=== PATIENT | male | born 1940 | race Caucasian/White ===

== ENCOUNTER → 2017-02-14 | Outpatient (CLI) | payer MEDICARE ==
[~2017-02-14] MED LIST: AMLO10TA2 PO; ASPI81TA81; LATA0.002 EACH EYE; LOVA10TA PO; MULTTAB67 PO; PRIM50TA5 PO
== END ==
LOC: CPRE 10:05
PROVIDERS: ATTEND Neurological Surgery
DX: M48.062 Spinal stenosis, lumbar region with neurogenic claudication (principal)

== ENCOUNTER 2017-02-18 06:05 | Inpatient (IN) | payer MEDICARE ==
[~2017-02-18] VITALS: Ht 177.8 cm; Wt 96.7 kg
[~2017-02-18 06:05] MED LIST changes: -ASPI81TA81
[2017-02-18] MEDS: LACTATED RINGER'S 1000 ML IV PRN ×2 (06:45→07:00)
[2017-02-18] MEDS ORDERED: CHLORHEXIDINE GLUCONATE 2 % 1 PACK (2 CLOTHS) TOPICAL PRN (06:45)
[2017-02-18] MEDS ORDERED: POVIDONE IODINE 5% (ANTISEPSIS KIT) 4 APPLICATIONS EACH NARE PRN (06:45)
[2017-02-18] MEDS ORDERED: SODIUM CHLORID 0.9% 500 ML IV PRN (06:45)
[2017-02-18] MEDS ORDERED: METOPROLOL TARTRATE 25 MG TAB PO PRN (06:45)
[2017-02-18] MEDS ORDERED: THROMBIN (TOPICAL) 5,000 UNIT VIAL ONE (07:21)
[2017-02-18] MEDS ORDERED: LIDOCAINE 1%/EPINEPHrine 1:100,000 SOLN 50 ML VIAL ONE (07:21)
[2017-02-18] MEDS ORDERED: GENTAMICIN SULFATE 80 MG/2 ML VIAL ONE (07:21)
[2017-02-18] MEDS ORDERED: GELFOAM SIZE 100 ONE (07:21)
[2017-02-18] MEDS ORDERED: BUPIVACAINE/EPINEPHRINE 0.25% PF 30 ML VIAL ONE (07:31)
[2017-02-18] MEDS: ceFAZolin 1,000 MG/NS 100 ML IV SCH ×4 (07:35→09:14)
[2017-02-18] MEDS ORDERED: PROPOFOL 500 MG/50 ML INJ 0 ML ONE (07:41)
[2017-02-18] MEDS ORDERED: ACETAMINOPHEN 1000 MG/100 ML 100 ML IV ONE (07:59)
[2017-02-18] MEDS ORDERED: ARTIFICIAL TEARS OPTH OINT 3.5 APPLIC/3.5 GM TUBO ONE (07:59)
[2017-02-18] MEDS ORDERED: PROPOFOL 500 MG/50 ML INJ 200 ML ONE (07:59)
[2017-02-18] MEDS ORDERED: HEPARIN SODIUM - SQ 10,000 UNITS/ML VIAL ONE (08:03)
[2017-02-18] MEDS ORDERED: DEXAMETHASONE SOD PHOS 4 MG/ML VIAL ONE (09:39)
[2017-02-18] MEDS ORDERED: NALOXONE HCL 0.4 MG/ML AMP IV PUSH PRN ×2 (10:30)
[2017-02-18] MEDS ORDERED: HYDROmorphone HCL PF 1 MG/ML VIAL IV PUSH PRN (10:30)
[2017-02-18] MEDS ORDERED: ONDANSETRON HCL 4 MG/2 ML VIAL IV PUSH PRN (10:30)
[2017-02-18] MEDS ORDERED: ceFAZolin 2 GM PREMIX 50 ML ONE ×2 (11:15→15:37)
[2017-02-18 14:05] LABS: BLOOD GAS BASE EXCESS -0.6 mmol/L (-2-2); BLOOD GAS CARBOXYHEMOGLOBIN 1.2 % (0-4); BLOOD GAS HCO3 23 mmol/L (22-26); BLOOD GAS O2 HGB SATURATION 97 % (90-100); BLOOD GAS OXYGEN CONTENT 18.9 Vol % (12.0-20.0); BLOOD GAS PCO2 34 mmHg (38-42); BLOOD GAS PO2 190 mmHg (61-120); BLOOD GAS TOTAL HGB 13.6 G/DL (12.0-16.0); CRITICAL VALUE NO; OXYGEN DEVICE OR; TEMP CORR TO 98.6; VENT SETTINGS OR
[2017-02-18 14:06] LABS: DRAW SITE ART LINE; STAT YES
[2017-02-18] MEDS ORDERED: FUROSEMIDE 40 MG/4 ML VIAL ONE (15:22)
[2017-02-18 15:42] LABS: BLOOD GAS BASE EXCESS -2.6 mmol/L (-2-2); BLOOD GAS CARBOXYHEMOGLOBIN 1.3 % (0-4); BLOOD GAS HCO3 21 mmol/L (22-26); BLOOD GAS METHEMOGLOBIN 1.2 % (0-2); BLOOD GAS O2 HGB SATURATION 97 % (90-100); BLOOD GAS OXYGEN CONTENT 17.8 Vol % (12.0-20.0); BLOOD GAS PCO2 33 mmHg (38-42); BLOOD GAS PO2 183 mmHg (61-120); BLOOD GAS TOTAL HGB 12.8 G/DL (12.0-16.0); TEMP CORR TO 98.6
[2017-02-18 15:43] LABS: CRITICAL VALUE NO
[2017-02-18 15:43] LABS: BASOPHIL % 0.1 % (0.0-2.0); EOSINOPHIL % 0.1 % (0.0-4.0); HEMATOCRIT 40.1 % (39.0-51.0); HEMO FLAGS DIFF FINAL; LYMPHOCYTE # 0.4 TH/MM3 (1.0-4.8); MEAN CELL VOLUME 98.2 FL (80.0-100.0); MEAN CORPUSCULAR HGB CONC 33.6 % (32.0-36.0); MONO % 6.1 % (0.0-8.0); NEUT % 91.7 % (16.0-70.0); PLATELET COUNT 180 TH/MM3 (150-450); RED BLOOD COUNT 4.08 MIL/MM3 (4.50-5.90); RED CELL DISTRIBUTION WIDTH 12.9 % (11.6-17.2); WHITE BLOOD COUNT 21.8 TH/MM3 (4.0-11.0)
[2017-02-18 15:47] LABS: FIO2 53 %; OXYGEN DEVICE VENTILATOR
[2017-02-18 15:48] LABS: DRAW SITE ART LINE
[2017-02-18 15:49] LABS: STAT YES
[2017-02-18] MEDS ORDERED: SUGAMMADEX SODIUM 200 MG/2 ML VIAL IV PUSH ONE ×2 (16:30)
--- NOTE | 2017-02-18 17:00 | PD.OP ---
cc: Alfredo Olivo MD Operative Report Date of Surgery: Feb 18, 2017 Preoperative Diagnosis: (1) Flat back syndrome, acquired (2) Back pain 1. Severe lumbar degenerative disc disease 2. Lumbar spine deformity-flat back syndrome 3. Severe chronic low back pain Postoperative Diagnosis: (1) Flat back syndrome, acquired (2) Back pain 1. Severe lumbar degenerative disc disease 2. Lumbar spine deformity-flat back syndrome 3. Severe chronic low back pain Procedure: Part 1 of planned two-part procedure. 1. Anterior retroperitoneal approach to the lumbar spine-Dr. Olivo 2. L4 5 and L5-S1 anterior lumbar discectomy 3. L4 5 and L5-S1 anterior interbody fusion with titanium lordotic cage, autograft bone and DBM. Anesthesia: Gen. endotracheal Surgeon: Yaniv Olivo M.D. Low Pressure Kettle Operator(s): Naty Melendez Operation and Findings: Findings: Large anterior osteophytes at the L4 5 and L5-S1 level. Significant vascular adhesions. The patient was brought into the operating room and general endotracheal anesthesia induced without difficulty Benjamin catheter KARLOS hose and sequential compression devices were placed Lines were established per Anesthesia The leads for intraoperative neuro monitoring were placed and a baseline study obtained The patient was placed in supine position on the concentric Jeremy table and extremities were properly padded. A lumbar lordotic roll was placed across the lower lumbar region with pneumatic pressure cuffs placed to provide additional lordotic curvature during the procedure as needed. The anterior abdominal region was shaved with clippers sterilely prepped and draped Appropriate timeout procedure was performed with all personnel present and in agreement The initial exposure was performed per Dr. Alfredo Olivo and will be dictated separately. The undersigned entered the room with initial excellent exposure of the L4-5 anterior vertebral bodies and annulus. The level was verified with intraoperative C-arm. The 15 blade knife was used to incise the anterior annulus at the L4 5 level. The discectomy was performed with the long discectomy forceps and straight and angled curettes. A thorough discectomy was performed out to the lateral and posterior annulus on each side. The endplate scrapers were used to decorticate the endplate The bone rongeur was used to remove large anterior osteophytes The blunt distractors with the distraction paddle was used to elevate the anterior L4 5 interspace into a lordotic curvature The appropriate size titanium lordotic cage was packed with demineralized bone, cancellus chips, and stem cell matrix and a small amount of autograft from the osteophyte removal. The 20 18 mm cage was used at the L4 5 level. The appropriate size anterior cervical plate was then chosen with the 27 mm plate at the L4 [address] with 5.035 mm variable angle screws The locking mechanism was secured over the screws at each level The entire construct was checked with intraoperative C-arm and felt to be satisfactory The exposure at the L5-S1 level and placement of the retractor blades was then performed per Dr. Olivo. The similar procedure was performed at the L5-S1 level for the undersigned. The anterior disc and annulus were incised and discectomy performed with the long discectomy forceps and straight and angled curettes. The endplate scrapers were used to decorticate the endplate taking care not to disrupt the integrity of the endplates The distraction paddle was then used to distract the anterior L5-S1 vertebral bodies into a lordotic curvature. The trials were utilized and the 20 14 mm titanium cage was chosen. The cage was packed with demineralized bone matrix with stem cell matrix, cancellous chips and a small amount of autologous local bone. The cage was placed with a good fit at the L5-S1 level. The 27 mm anterior plate was chosen and secured with the 5.0 x 30 mm variable screws which were then secured with the locking cam. The entire construct was again checked with intraoperative C-arm and felt to be satisfactory. There appeared to be a satisfactory increase in the lordotic curvature at the end of the procedure. The regions were well irrigated with antibiotic irrigation prior to closure. The closure was performed by Dr. Olivo and will be dictated separately. The patient was taken to recovery room in stable condition Estimated blood loss was 850 cc with 524 cc given back in the Cell Saver. All counts were correct at the end of the case No specimen was sent to pathology Intraoperative neuro monitoring was stable during the procedure It was elected to stage the posterior pedicle screw fixation portion of the procedure due to the increased anesthesia time for the initial portion of procedure secondary to extensive inflammation and adhesions resulting in difficulty with exposure for the first stage, Yaniv Aquino MD Feb 18, 2017 17:00
[2017-02-18] MEDS ORDERED: *RESP: ALBUTEROL 2.5 MG/3 ML NEB (PRN) PERIprocedural Use ONLY NEB ONE (17:26)
--- NOTE | 2017-02-18 17:27 | RADRPT ---
EXAM DATE/TIME: 02/18/2017 16:35 [facility] COMPARISON: No previous studies available for comparison. INDICATIONS : Instrument count. MEDICAL HISTORY : None. SURGICAL HISTORY : Anterior lumbar fusion. ENCOUNTER: Initial ACUITY: 1 day PAIN SCORE: Non-responsive. LOCATION: Abdomen. FINDINGS: Status post anterior lumbar fusion with cages in good position. There are no retained surgical instr uments Hardware and multiple surgical clips are noted. CONCLUSION: Negative for retained surgical enhancements. Adolfo Rodríguez MD FACR on February 18, 2017 at 17:24 Board Certified Radiologist. This report was verified electronically.
--- NOTE | 2017-02-18 17:29 | RADRPT ---
EXAM DATE/TIME: 02/18/2017 09:47 [facility] COMPARISON: No previous studies available for comparison. INDICATIONS : Anterior lumbar fusion L4/L5/S1. MEDICAL HISTORY : None. SURGICAL HISTORY : None. ENCOUNTER: Initial ACUITY: 1 day PAIN SCORE: Non-responsive. LOCATION: Lumbar spine. FINDINGS: Status post anterior lumbar fusion L4-5 and L5-S1. Alignment is anatomic. CONCLUSION: Anatomic alignment. Adolfo Rodríguez MD FACR on February 18, 2017 at 17:27 Board Certified Radiologist. This report was verified electronically.
--- NOTE | 2017-02-18 17:31 | MP ---
cc: TARIQ SANTIAGO M.D., WILLIAM B. M.D. DATE OF SURGERY: 02/18/2017. PREOPERATIVE DIAGNOSIS: Severe degenerative disease of the lumbosacral spine. POSTOPERATIVE DIAGNOSIS: Severe degenerative disease of the lumbosacral spine. PROCEDURE Anterior retroperitoneal exposure of L4-5, L5-S1. SURGEON: Tariq Santiago M.D. NEUROSURGEON: Yaniv Aquino MD. ANESTHESIA: General. INDICATIONS FOR THE PROCEDURE: This is a 76-year-old gentleman who is a patient of Dr. Yaniv Aquino who has had chronic back pain. He has undergone extensive evaluation and recommendations have been made for anterior interbody fusion. Request was made for anterior retroperitoneal exposure. INTRAOPERATIVE FINDINGS: Pretty significant osteophytes and subsequent inflammatory changes causing increased difficulty in providing exposure. The procedure took additional time due to these chronic inflammatory changes and ultimately excellent exposure of L4-5 and L5-S1 was obtained for the procedures as dictated by Dr. Aquino. ESTIMATED BLOOD LOSS: 850 with Cell Saver blood 550 returned to the patient. DESCRIPTION OF THE PROCEDURE IN DETAIL: The patient was identified as Aly Wheeler and taken to the operating room and placed in the supine position. Following induction of adequate general endotracheal anesthesia, placement of sequential compression devices and a Benjamin catheter, the patient's abdomen was prepped and draped in the usual sterile fashion with Betadine. A time-out procedure was performed. Following completion of the time-out procedure to everyone's satisfaction within the room, a slightly obliquely oriented incision just inferior and left lateral to the umbilicus down to above the pubic symphysis was carried out with a scalpel and hemostasis controlled with electrocautery. Dissection continued posteriorly through subcutaneous fatty tissue layer into the anterior rectus fascia slightly to the left of midline was identified and incised vertically. The underlying rectus muscle was swept laterally and anteriorly, thus exposing a preperitoneal and then retroperitoneal plane using electrocautery and blunt dissection the left iliopsoas muscle and then left iliac artery and vein were identified. The posterior fascia was released from the peritoneum laterally and the posterior fascia incised superiorly to allow for further exposure of the L5-S1 interspace. The Omni retractor was brought onto the surgical field and sequential retraction was performed. Attempts first to identify the L5-S1 interspace were done and the middle sacral vessels were identified and divided between 2-0 silk ties and hemoclips. The severe inflammatory nature of the fatty tissue directly on top of osteophytic change made the dissection more difficult. The tissue was very friable and oozed a fair amount. Hemostasis was controlled with combination of suture ligature hemoclips and electrocautery. Attention was then turned to mobilization of left iliac artery and vein proximally and distally. Three separate ascending lumbar vessels were divided to allow for mobilization of the inferior vena cava and the left iliac vein. These were divided between the suture ligature with 5-0 Prolene, 2-0 silk ties and hemoclips. This then allowed for movement of the Omni retractor blades in order to identify the L4-L5 interspace. Intraoperative C-arm fluoroscopic images were used to guide and assure that the appropriate level was being attended to. Completion of exposure of L4-L5 was performed. Retractor blades were appropriately positioned and Dr. Aquino entered the operating room to perform his portion of the procedure at this level. Please refer to his dictation. Following completion of the diskectomy and anterior interbody fusion by Dr. Aquino, the retracting blades were then moved to the L5-S1 interspace. Further dissection was required and the left iliac vein was infused basically to the superolateral L5-S1 interspace. Dissecting down into the tissue on top of the interspace allowed for further mobilization of left iliac vein without injuring it. Repositioning of the retracting blades allowed for excellent visualization of the L5-S1 interspace. This was confirmed on C-arm fluoroscopic images. Dr. Aquino then reentered the operating room and performed his portion of procedure at the appropriate level. Please refer to his dictation. Following completion of the second anterior diskectomy and interbody fusion with placement of the anterior plates, I returned to the operating room to sequentially remove the Omni retractor blades. A small amount of bleeding was controlled with cautery. The left ureter and the peritoneum was allowed to return to its normal anatomic position uninjured. The left spermatic cord remained uninjured and intact. The anterior rectus fascial incision was closed with running #1 single stranded PDS suture. Irrigation ensued. The subcutaneous space was then closed with multiple interrupted inverted 2-0 Vicryl sutures. Skin was approximated with 4-0 Monocryl subcuticular sutures and dressings applied with Mastisol and half inch brown Steri-Strips and Optifoam dressing. The patient tolerated the procedure without apparent complication. Sponge, needle and instrument counts correct at the end of the case. MD LUIS Peña/SOHAN /4:42 PM /4:58 PM
[2017-02-18] MEDS ORDERED: *morphine SULFATE 8 MG/ML PERIprocedure ONLY ONE ×2 (17:47→18:06)
[2017-02-18] MEDS ORDERED: DO NOT ADM ANY ANTICOAGULANT DRUGS PRN (18:00)
[2017-02-18 18:28] VITALS: BP 138/67; PULSE 85; RESP 17; TEMP 97.5; O2SAT 98
[2017-02-18 18:33] VITALS: BP 141/71; PULSE 86; RESP 18; O2SAT 98
[2017-02-18] MEDS: D5-1/2 NS + KCL 20 MEQ INJ 1,000 ML IV SCH (18:35)
[2017-02-18 20:00] VITALS: BP 153/87; PULSE 88; RESP 14; TEMP 98.2; O2SAT 99
[2017-02-18] MEDS: DOCUSATE SODIUM 100 MG CAP PO SCH (20:03)
[2017-02-18] MEDS: ACETAMINOPHEN/HYDROcodone 325 MG/5 MG TAB PO PRN (20:03)
[2017-02-18] MEDS: MORPHINE SULFATE 4 MG/ML INJ IV PUSH PRN (20:05)
[2017-02-18 20:30] LABS: BICARBONATE 24.2 MEQ/L (21.0-32.0); POTASSIUM 4.2 MEQ/L (3.5-5.1)
[2017-02-18] MEDS: LATANOPROST 0.005% OPHT SOLN 2.5 ML BTL EACH EYE SCH (20:44)
[2017-02-18] MEDS: PRIMIDONE 50 MG TAB PO SCH (20:44)
[2017-02-18 22:00] VITALS: PULSE 86
[2017-02-19] VITALS (11 sets, daily range): BP systolic 122–151; BP diastolic 63–85; PULSE 74–89; RESP 10–18; TEMP 97.6–100.8; O2SAT 92–99
[2017-02-19] MEDS: D5-1/2 NS + KCL 20 MEQ INJ 1,000 ML IV SCH ×2 (02:08→08:02)
[2017-02-19 03:06] LABS: BASOPHIL % 0.2 % (0.0-2.0); EOSINOPHIL % 0.1 % (0.0-4.0); HEMATOCRIT 38.8 % (39.0-51.0); HEMO FLAGS DIFF FINAL; LYMPH % 4.6 % (9.0-44.0); LYMPHOCYTE # 0.6 TH/MM3 (1.0-4.8); MEAN CELL VOLUME 98.2 FL (80.0-100.0); MEAN CORPUSCULAR HEMOGLOBIN 33.7 PG (27.0-34.0); MEAN CORPUSCULAR HGB CONC 34.4 % (32.0-36.0); MONO % 13.1 % (0.0-8.0); PLATELET COUNT 133 TH/MM3 (150-450); RED BLOOD COUNT 3.95 MIL/MM3 (4.50-5.90); RED CELL DISTRIBUTION WIDTH 12.9 % (11.6-17.2); WHITE BLOOD COUNT 13.4 TH/MM3 (4.0-11.0)
[2017-02-19 03:22] LABS: APTT (PATIENT) 24.3 SEC (24.3-30.1); INTERNATIONAL NORMALIZED RATIO 1.1 RATIO; PROTHROMBIN TIME - PATIENT 10.7 SEC (9.8-11.6)
[2017-02-19 04:00] LABS: BICARBONATE 29.5 MEQ/L (21.0-32.0); POTASSIUM 4.1 MEQ/L (3.5-5.1)
[2017-02-19] MEDS: ACETAMINOPHEN/HYDROcodone 325 MG/5 MG TAB PO PRN ×4 (05:28→21:51)
[2017-02-19] MEDS: PANTOPRAZOLE SODIUM 40 MG VIAL IVP SCH (08:00)
[2017-02-19] MEDS: DOCUSATE SODIUM 100 MG CAP PO SCH ×2 (08:01→21:50)
[2017-02-19] MEDS: NICOTINE 14 MG/24 HR PATCH T-DERMAL SCH (08:01)
[2017-02-19] MEDS: MULTIVITAMIN TAB PO SCH (08:01)
[2017-02-19] MEDS: REMOVE OLD PATCH T-DERMAL SCH ×2 (08:02→21:50)
[2017-02-19] MEDS: PRIMIDONE 50 MG TAB PO SCH ×2 (08:03→21:50)
[2017-02-19] MEDS: MORPHINE SULFATE 4 MG/ML INJ IV PUSH PRN (08:07)
--- NOTE | 2017-02-19 09:43 | HHI.PR ---
Subjective Subjective Notes Doing well, appropriately sore postop. Tolerated clears, no nausea. Walked straight upright, family very impressed. Wants food and transfer to floor. Objective Vitals/I&O Vital Signs Date Time Temp Pulse Resp B/P (MAP) Pulse Ox O2 Delivery O2 Flow Rate FiO2 02/19/17 07:31 95 Nasal Cannula 3.00 02/19/17 06:00 78 02/19/17 04:00 98.6 10 139/69 (92) Labs Laboratory Tests Test 02/18/17 13:55 02/18/17 15:30 02/18/17 15:35 02/18/17 19:56 Blood Gas Puncture Site ART LINE ART LINE Blood Gas Patient Temperature 98.6 98.6 Blood Gas HCO3 23 21 Blood Gas Base Excess -0.6 -2.6 Blood Gas Oxygen Saturation 97 97 Arterial Blood pH 7.44 7.43 Arterial Blood Partial Pressure CO2 34 33 Arterial Blood Partial Pressure O2 190 183 Arterial Blood Oxygen Content 18.9 17.8 Arterial Blood Carboxyhemoglobin 1.2 1.3 Arterial Blood Methemoglobin 1.0 1.2 Blood Gas Hemoglobin 13.6 12.8 Oxygen Delivery Device OR VENTILATOR Blood Gas Ventilator Setting OR White Blood Count 21.8 Red Blood Count 4.08 Hemoglobin 13.5 Hematocrit 40.1 Mean Corpuscular Volume 98.2 Mean Corpuscular Hemoglobin 33.0 Mean Corpuscular Hemoglobin Concent 33.6 Red Cell Distribution Width 12.9 Platelet Count 180 Mean Platelet Volume 8.6 Neutrophils (%) (Auto) 91.7 Lymphocytes (%) (Auto) 2.0 Monocytes (%) (Auto) 6.1 Eosinophils (%) (Auto) 0.1 Basophils (%) (Auto) 0.1 Neutrophils # (Auto) 20.0 Lymphocytes # (Auto) 0.4 Monocytes # (Auto) 1.3 Eosinophils # (Auto) 0.0 Basophils # (Auto) 0.0 CBC Comment DIFF FINAL Differential Comment Blood Gas Inspired Oxygen 53 Blood Urea Nitrogen 10 Creatinine 1.42 Random Glucose 249 Calcium Level 7.8 Sodium Level 138 Potassium Level 4.2 Chloride Level 103 Carbon Dioxide Level 24.2 Anion Gap 11 Estimat Glomerular Filtration Rate 49 Test 02/19/17 02:54 White Blood Count 13.4 Red Blood Count 3.95 Hemoglobin 13.3 Hematocrit 38.8 Mean Corpuscular Volume 98.2 Mean Corpuscular Hemoglobin 33.7 Mean Corpuscular Hemoglobin Concent 34.4 Red Cell Distribution Width 12.9 Platelet Count 133 Mean Platelet Volume 8.5 Neutrophils (%) (Auto) 82.0 Lymphocytes (%) (Auto) 4.6 Monocytes (%) (Auto) 13.1 Eosinophils (%) (Auto) 0.1 Basophils (%) (Auto) 0.2 Neutrophils # (Auto) 11.0 Lymphocytes # (Auto) 0.6 Monocytes # (Auto) 1.8 Eosinophils # (Auto) 0.0 Basophils # (Auto) 0.0 CBC Comment DIFF FINAL Differential Comment Prothrombin Time 10.7 Prothromb Time International Ratio 1.1 Activated Partial Thromboplast Time 24.3 Blood Urea Nitrogen 8 Creatinine 0.90 Random Glucose 189 Calcium Level 7.6 Sodium Level 139 Potassium Level 4.1 Chloride Level 105 Carbon Dioxide Level 29.5 Anion Gap 5 Estimat Glomerular Filtration Rate 82 Abdomen: Non-distended, Non-tender, Other (dressing dry and intact, no erythema or drainage. Bowel sounds normal.) Extremities: No edema, Perfused A/P Assessment and Plan POD 1 anterior retroperitoneal exposure L4L5, L5S1, anterior microdiskectomy, AIBF. Doing well. Regular diet. OK for transfer to regular floor when OK with Dr Aquino. Alfredo Olivo MD Feb 19, 2017 09:43
--- NOTE | 2017-02-19 10:01 | HHI.NSPN ---
(Sandie Lo) Note Status Status: Progress Note (Sandie Lo) Interval History Interval History Mr. Wheeler is a 76 year old male s/p L4-5, L5-S1 anterior discectomy with interbody fusion with titanium lordotic cage, autograft bone and DBM on Feb 18, 2017. 02/19: patient doing well, c/o soreness in the belly. sat up in chair this am. (Sandie Lo) Labs, Micro, & Vital Signs Results Date Time Temp Pulse Resp B/P (MAP) Pulse Ox O2 Delivery O2 Flow Rate FiO2 02/19/17 08:00 97.6 74 16 123/70 (87) 97 02/19/17 07:31 95 Nasal Cannula 3.00 02/19/17 07:00 96 Nasal Cannula 2.00 02/19/17 06:00 78 02/19/17 04:00 80 02/19/17 04:00 98.6 80 10 139/69 (92) 97 02/19/17 03:02 98 Nasal Cannula 3.00 02/19/17 02:00 80 02/19/17 00:00 98.4 89 13 144/85 (104) 99 02/19/17 00:00 89 02/18/17 22:00 86 02/18/17 20:00 98.2 88 14 153/87 (109) 99 02/18/17 20:00 88 02/18/17 19:00 99 Nasal Cannula 4.00 02/18/17 18:33 86 18 141/71 (94) 98 02/18/17 18:32 97 Nasal Cannula 4.00 02/18/17 18:28 97.5 85 17 138/67 (90) 98 02/18/17 18:00 98.5 85 15 128/65 (86) 96 Nasal Cannula 3 02/18/17 17:45 84 15 125/64 (84) 96 Nasal Cannula 4 02/18/17 17:30 83 16 122/64 (83) 97 Nasal Cannula 4 02/18/17 17:11 98.0 83 16 135/61 (85) 96 Nasal Cannula 6 Constitutional Vital Signs Date Time Temp Pulse Resp B/P (MAP) Pulse Ox O2 Delivery O2 Flow Rate FiO2 02/19/17 08:00 97.6 74 16 123/70 (87) 97 02/19/17 07:31 95 Nasal Cannula 3.00 02/19/17 07:00 96 Nasal Cannula 2.00 02/19/17 06:00 78 02/19/17 04:00 80 02/19/17 04:00 98.6 80 10 139/69 (92) 97 02/19/17 03:02 98 Nasal Cannula 3.00 02/19/17 02:00 80 02/19/17 00:00 98.4 89 13 144/85 (104) 99 02/19/17 00:00 89 02/18/17 22:00 86 02/18/17 20:00 98.2 88 14 153/87 (109) 99 02/18/17 20:00 88 02/18/17 19:00 99 Nasal Cannula 4.00 02/18/17 18:33 86 18 141/71 (94) 98 02/18/17 18:32 97 Nasal Cannula 4.00 02/18/17 18:28 97.5 85 17 138/67 (90) 98 02/18/17 18:00 98.5 85 15 128/65 (86) 96 Nasal Cannula 3 02/18/17 17:45 84 15 125/64 (84) 96 Nasal Cannula 4 02/18/17 17:30 83 16 122/64 (83) 97 Nasal Cannula 4 02/18/17 17:11 98.0 83 16 135/61 (85) 96 Nasal Cannula 6 (Sandie Lo) Physical Exam Mr. Wheeler is alert, awake and oriented to time, place and person. Speech is fluent. Cranial nerve examination: pupils to be equal, round and reactive to light. Extra-ocular movements are intact. Facial motor are normal and symmetrical. Belly incision is clean and dry. Muscle strength is normal in lower extremities. bilateral plantar flexion response (Sandie Lo) Medications Current Medications Current Medications Medications (Trade) Dose Ordered Sig/Ethel Route PRN Reason Start Time Stop Time Status Last Admin Dose Admin Potassium Chloride/Dextrose/ Sod Cl 1,000 ml @ 100 mls/hr Q10H IV 02/18/17 11:00 02/19/17 08:02 Docusate Sodium (Colace) 100 mg BID PO 02/18/17 21:00 02/19/17 08:01 Pantoprazole Sodium (Protonix Inj) 40 mg DAILY IVP 02/19/17 09:00 02/19/17 08:00 Ondansetron HCl (Zofran Inj) 4 mg Q6H PRN IV PUSH NAUSEA OR VOMITING 02/18/17 10:30 Acetaminophen/ Hydrocodone Bitart ([place] 5-325 Mg) 1 tab Q4H PRN PO PAIN SCALE 3 TO 5 02/18/17 10:30 02/19/17 09:46 Hydromorphone HCl (Dilaudid Pf Inj) 0.5 mg Q3H PRN IV PUSH Pain 3-5; if unable to take PO 02/18/17 10:30 Morphine Sulfate (Morphine Inj) 4 mg Q3H PRN IV PUSH BREAKTHROUGH PAIN 02/18/17 10:30 02/19/17 08:07 Naloxone HCl (Narcan Inj) 0.4 mg UNSCH PRN IV PUSH SEE LABEL COMMENTS 02/18/17 10:30 Hydromorphone HCl (Dilaudid) 2 mg Q4H PRN PO PAIN SCALE 6 TO 10 02/18/17 10:30 Nicotine (Habitrol 14 Mg Patch.24 Hr) 1 patch DAILY T-DERMAL 02/19/17 09:00 02/19/17 08:01 Miscellaneous Information 1 DAILY T-DERMAL 02/19/17 09:00 02/19/17 08:02 Amlodipine Besylate (Norvasc) 10 mg HS PO 02/18/17 21:00 02/18/17 20:03 Latanoprost (Xalatan 0.005% Opt Soln) 1 drop HS EACH EYE 02/18/17 21:00 02/18/17 20:44 Primidone (Mysoline) 100 mg BID PO 02/18/17 21:00 02/19/17 08:03 Multivitamins (Theragran) 1 tab DAILY PO 02/19/17 09:00 02/19/17 08:01 Miscellaneous Information ALL NURSING DEPARTME... UNSCH PRN .XX SEE LABEL COMMENTS 02/18/17 18:00 02/19/17 17:59 (Sandie Lo) Medical Decision Making MDM Remarks 76 y/o male s/p L4-5, L5-S1 ALIF on 02/18/17, doing well post-operatively, neuro stable (Sandie Lo) Plan Plan Remarks clear to transfer to Dr. Olivo following cont pain control prn SCDs and TEDs for dvt prophylaxis physical therapy LSO when out of bed (Sandie Lo) Attending Statement The exam, history, and the medical decision-making described in the above note were completed with the assistance of the mid-level provider. I reviewed and agree with the findings presented. I attest that I had a [id number] encounter with the patient on the same day, and personally performed and documented my assessment and findings in the medical record. (David Jernigan MD) Sandie Lo Feb 19, 2017 10:01 David Jernigan MD Feb 20, 2017 16:58
[2017-02-19] MEDS: HYDROmorphone HCL 2 MG TAB PO PRN (18:04)
[2017-02-19] MEDS: LATANOPROST 0.005% OPHT SOLN 2.5 ML BTL EACH EYE SCH (21:50)
[2017-02-20] VITALS (7 sets, daily range): BP systolic 107–138; BP diastolic 56–76; PULSE 74–92; RESP 17–20; TEMP 98–100.5; O2SAT 91–95
[2017-02-20] MEDS: D5-1/2 NS + KCL 20 MEQ INJ 1,000 ML IV SCH ×3 (00:55→20:50)
[2017-02-20] MEDS: ACETAMINOPHEN/HYDROcodone 325 MG/5 MG TAB PO PRN ×2 (01:59→06:21)
[2017-02-20] MEDS: NICOTINE 14 MG/24 HR PATCH T-DERMAL SCH (09:45)
[2017-02-20] MEDS: MULTIVITAMIN TAB PO SCH (09:45)
[2017-02-20] MEDS: DOCUSATE SODIUM 100 MG CAP PO SCH ×2 (09:45→20:47)
[2017-02-20] MEDS: PRIMIDONE 50 MG TAB PO SCH ×2 (09:45→20:47)
[2017-02-20] MEDS: PANTOPRAZOLE SODIUM 40 MG VIAL IVP SCH (09:50)
--- NOTE | 2017-02-20 11:13 | HHI.NSPN ---
(Sandie Lo) Note Status Status: Progress Note (Sandie Lo) Interval History Interval History Mr. Wheeler is a 76 year old male s/p L4-5, L5-S1 anterior discectomy with interbody fusion with titanium lordotic cage, autograft bone and DBM on Feb 18, 2017. 02/19: patient doing well, c/o soreness in the belly. sat up in chair this am. 02/20: complains of constipation and muscle spasms, otherwise he is doing well. (Sandie Lo) Labs, Micro, & Vital Signs Results Date Time Temp Pulse Resp B/P (MAP) Pulse Ox O2 Delivery O2 Flow Rate FiO2 02/20/17 07:41 98.6 92 17 116/64 (81) 94 02/20/17 04:00 98.0 83 20 138/74 (95) 95 02/20/17 00:00 100.5 85 18 112/56 (74) 92 02/19/17 20:25 100.8 89 18 151/76 (101) 92 02/19/17 14:25 99.1 82 18 122/63 (82) 97 02/19/17 13:55 Nasal Cannula 2.00 02/19/17 12:00 84 02/19/17 12:00 98.0 76 16 123/70 (87) 97 Constitutional Vital Signs Date Time Temp Pulse Resp B/P (MAP) Pulse Ox O2 Delivery O2 Flow Rate FiO2 02/20/17 07:41 98.6 92 17 116/64 (81) 94 02/20/17 04:00 98.0 83 20 138/74 (95) 95 02/20/17 00:00 100.5 85 18 112/56 (74) 92 02/19/17 20:25 100.8 89 18 151/76 (101) 92 02/19/17 14:25 99.1 82 18 122/63 (82) 97 02/19/17 13:55 Nasal Cannula 2.00 02/19/17 12:00 84 02/19/17 12:00 98.0 76 16 123/70 (87) 97 (Sandie Lo) Physical Exam Mr. Wheeler is alert, awake and oriented to time, place and person. Speech is fluent. Cranial nerve examination: pupils to be equal, round and reactive to light. Extra-ocular movements are intact. Facial motor are normal and symmetrical. Belly incision is clean and dry. Muscle strength is normal in lower extremities. bilateral plantar flexion response (Sandie Lo) Medications Current Medications Current Medications Medications (Trade) Dose Ordered Sig/Ethel Route PRN Reason Start Time Stop Time Status Last Admin Dose Admin Potassium Chloride/Dextrose/ Sod Cl 1,000 ml @ 100 mls/hr Q10H IV 02/18/17 11:00 02/19/17 08:02 Docusate Sodium (Colace) 100 mg BID PO 02/18/17 21:00 02/20/17 09:45 Pantoprazole Sodium (Protonix Inj) 40 mg DAILY IVP 02/19/17 09:00 02/20/17 09:50 Ondansetron HCl (Zofran Inj) 4 mg Q6H PRN IV PUSH NAUSEA OR VOMITING 02/18/17 10:30 Acetaminophen/ Hydrocodone Bitart ([place] 5-325 Mg) 1 tab Q4H PRN PO PAIN SCALE 3 TO 5 02/18/17 10:30 02/20/17 06:21 Hydromorphone HCl (Dilaudid Pf Inj) 0.5 mg Q3H PRN IV PUSH Pain 3-5; if unable to take PO 02/18/17 10:30 Morphine Sulfate (Morphine Inj) 4 mg Q3H PRN IV PUSH BREAKTHROUGH PAIN 02/18/17 10:30 02/19/17 08:07 Naloxone HCl (Narcan Inj) 0.4 mg UNSCH PRN IV PUSH SEE LABEL COMMENTS 02/18/17 10:30 Hydromorphone HCl (Dilaudid) 2 mg Q4H PRN PO PAIN SCALE 6 TO 10 02/18/17 10:30 02/19/17 18:04 Nicotine (Habitrol 14 Mg Patch.24 Hr) 1 patch DAILY T-DERMAL 02/19/17 09:00 02/20/17 09:45 Miscellaneous Information 1 DAILY T-DERMAL 02/19/17 09:00 02/19/17 21:50 Amlodipine Besylate (Norvasc) 10 mg HS PO 02/18/17 21:00 02/19/17 21:50 Latanoprost (Xalatan 0.005% Opth Soln) 1 drop HS EACH EYE 02/18/17 21:00 02/19/17 21:50 Primidone (Mysoline) 100 mg BID PO 02/18/17 21:00 02/20/17 09:45 Multivitamins (Theragran) 1 tab DAILY PO 02/19/17 09:00 02/20/17 09:45 Magnesium Citrate (Citroma Liq) 300 ml ONCE ONCE PO 02/20/17 11:15 02/20/17 11:16 UNV (Sandie Lo) Medical Decision Making MDM Remarks 76 y/o male s/p L4-5, L5-S1 ALIF 02/18/17, doing well post-operatively, neuro stable (Sandie Lo) Plan Plan Remarks cont pain control prn SCDs and TEDs for dvt prophylaxis physical therapy LSO when out of bed start on muscle relaxants for muscle spasms cont colace, add mag citrate for constipation (Sandie Lo) Attending Statement The exam, history, and the medical decision-making described in the above note were completed with the assistance of the mid-level provider. I reviewed and agree with the findings presented. I attest that I had a [id number] encounter with the patient on the same day, and personally performed and documented my assessment and findings in the medical record. (David Jernigan MD) Sandie Lo Feb 20, 2017 11:13 David Jernigan MD Feb 20, 2017 17:17
[2017-02-20] MEDS ORDERED: MAGNESIUM CITRATE SOLN 300 ML BTL PO ONE (11:15)
[2017-02-20] MEDS: HYDROmorphone HCL 2 MG TAB PO PRN ×3 (11:21→20:46)
--- NOTE | 2017-02-20 13:44 | RADRPT ---
EXAM DATE/TIME: 02/20/2017 12:57 [facility] COMPARISON: No previous studies available for comparison. INDICATIONS : Status post discectomy, lower back pain. RADIATION DOSE: 44.64 CTDIvol (mGy) MEDICAL HISTORY : Discectomy SURGICAL HISTORY : Appendectomy. ENCOUNTER: Initial ACUITY: 1 day PAIN SCALE: 7/10 LOCATION: [facility] TECHNIQUE: Volumetric scanning of the lumbar spine was performed. Multiplanar reconstructions in the sagittal, coronal and oblique axial planes were performed. Using automated exposure control and adjustment of the mA and/or kV according to patient size, radiation dose was kept as low as reasonably achievable t o obtain optimal diagnostic quality images. DICOM format image data is available electronically for review and comparison. FINDINGS: VERTEBRAE: Postsurgical features of disc cage and anterior plate and screw fixation at L4-S1. Hardware appears i ntact and is well-positioned. Vertebral body heights are intact without evidence for acute bony fract ure or focal bony destruction. ALIGNMENT: Size alignment is maintained. T12-L1: Mild eccentric left posterior disc osteophyte complex with mild effacement of the left anterior theca l sac. No bony neural foraminal narrowing. L1-L2: Moderate disc space loss with a minimal posterior disc osteophyte complex. No significant central can al or neural foraminal stenosis. L2-L3: Moderate disc space loss without significant disc bulge or herniation. Central canal and neural rell cassandra are patent. L3-L4: Mild to moderate disc space loss with mild diffuse disc bulge and anterior osteophytes. Mild effaceme nt of the anterior thecal sac with mild right caudal neural foraminal narrowing. L4-L5: Anterior fusion with disc cage in place. Mild posterior osteophytes with subtle effacement of the ant erior thecal sac. Very mild bilateral facet arthropathy. Moderate caudal bilateral neural foraminal n arrowing. L5-S1: Anterior fusion with disc cage in place. End plate sclerosis with mild posterior osteophytes with mil d effacement of the anterior thecal sac. Mild bilateral facet arthropathy. Moderate caudal bilateral neural foraminal narrowing secondary to osteophytes. The visualized portions of the posterior abdomen demonstrate a 5 mm calyceal calculus in the inferior pole of the right kidney. No evidence for hydronephrosis bilaterally. A 1.3 cm hypodense lesion in t he left lobe liver is incompletely characterized. There is a small left anterior paraspinal hematoma containing small foci of air measuring approximately 3.6 x 1.7 cm at L5-S1 level. Remaining visualize d paraspinal soft tissues are grossly unremarkable. CONCLUSION: 1. Status post anterior fusion with disc cage placement at L4-5 and L5-S1. Hardware is intact in size alignment is maintained. 2. Very small 3.6 x 1.7 cm left anterior paraspinal hematoma with tiny foci of air at L5-S1 level. Th is is likely postsurgical. Developing abscess is unlikely given the short postop interval, although i t cannot be excluded. 3. Multilevel degenerative spondylosis of the lumbar spine, as above. 4. 5 mm nonobstructing calyceal calculus in the inferior pole of the right kidney. 5. Multiple 3 cm hypodense lesion in the left lobe of the liver, incompletely characterized on this e xam. Statistically, this reflects hemangioma or cyst. Further evaluation may be performed with ultras ound or formal CT examination if clinically warranted. Lamine Amanda MD on February 20, 2017 at 13:28 Board Certified Radiologist. This report was verified electronically.
[2017-02-20] MEDS: LATANOPROST 0.005% OPHT SOLN 2.5 ML BTL EACH EYE SCH (20:47)
[2017-02-20] MEDS: REMOVE OLD PATCH T-DERMAL SCH (20:54)
[2017-02-21] MEDS ORDERED: SODIUM CHLORID 0.9% 500 ML IV PRN (01:00)
[2017-02-21] MEDS ORDERED: LACTATED RINGER'S 1000 ML IV PRN (01:00)
[2017-02-21] MEDS ORDERED: CHLORHEXIDINE GLUCONATE 2 % 1 PACK (2 CLOTHS) TOPICAL PRN (01:00)
[2017-02-21] MEDS ORDERED: POVIDONE IODINE 5% (ANTISEPSIS KIT) 4 APPLICATIONS EACH NARE PRN (01:00)
[2017-02-21] MEDS: HYDROmorphone HCL 2 MG TAB PO PRN (03:20)
[2017-02-21 04:09] VITALS: BP 134/74; PULSE 95; RESP 18; TEMP 98.9; O2SAT 92
[2017-02-21] MEDS ORDERED: PROPOFOL 500 MG/50 ML INJ 200 ML ONE (06:44)
[2017-02-21] MEDS ORDERED: GELFOAM SIZE 100 ONE (06:44)
[2017-02-21] MEDS ORDERED: THROMBIN (TOPICAL) 5,000 UNIT VIAL ONE (06:44)
[2017-02-21] MEDS ORDERED: LIDOCAINE 1%/EPINEPHrine 1:100,000 SOLN 50 ML VIAL ONE (06:45)
[2017-02-21] MEDS ORDERED: GENTAMICIN SULFATE 80 MG/2 ML VIAL ONE (06:45)
[2017-02-21] MEDS ORDERED: ACETAMINOPHEN 1000 MG/100 ML 100 ML IV ONE (06:53)
[2017-02-21] MEDS ORDERED: ARTIFICIAL TEARS OPTH OINT 3.5 APPLIC/3.5 GM TUBO ONE (06:53)
[2017-02-21] MEDS ORDERED: HYDROmorphone HCL PF 2 MG/ML VIAL ONE (07:50)
[2017-02-21] MEDS ORDERED: BUPIVACAINE HCL PF 0.25% 30 ML VIAL ONE (08:44)
[2017-02-21] MEDS ORDERED: BUPIVACAINE LIPOSOME PF 1.3% 20 ML VIAL ONE ×2 (08:46→10:33)
[2017-02-21] MEDS: PANTOPRAZOLE SODIUM 40 MG VIAL IVP SCH (09:00)
[2017-02-21] MEDS: DOCUSATE SODIUM 100 MG CAP PO SCH ×2 (09:00→21:35)
[2017-02-21] MEDS: NICOTINE 14 MG/24 HR PATCH T-DERMAL SCH (09:00)
[2017-02-21] MEDS: PRIMIDONE 50 MG TAB PO SCH ×2 (09:00→21:35)
[2017-02-21] MEDS: MULTIVITAMIN TAB PO SCH (09:00)
[2017-02-21] MEDS ORDERED: ceFAZolin 2 GM PREMIX 50 ML IV ONE ×2 (10:36→15:00)
[2017-02-21 11:42] VITALS: BP 107/61; PULSE 105; RESP 20; TEMP 96.9; O2SAT 97
[2017-02-21] MEDS ORDERED: *morphine SULFATE 8 MG/ML PERIprocedure ONLY ONE ×2 (13:41→13:56)
--- NOTE | 2017-02-21 13:48 | PD.OP ---
Operative Report Date of Surgery: Feb 21, 2017 Preoperative Diagnosis: (1) Flat back syndrome, acquired (2) Back pain 1. Acquired lumbar deformity-"flat back syndrome" 2. Severe chronic back pain Postoperative Diagnosis: (1) Flat back syndrome, acquired (2) Back pain 1. Acquired lumbar deformity-"flat back syndrome" 2. Severe chronic back pain Procedure: Part 2 of planned two-stage procedure. 1. Bilateral L4-S1 posterior instrumentation with pedicle screw fixation 2. Bilateral L4 5 and L5-S1 facet rhizotomy Anesthesia: Gen. Surgeon: Yaniv Aquino [employer] Supervisor(s): Juan Jean Operation and Findings: Procedure in detail The patient was brought to the operating room and general endotracheal anesthesia induced without difficulty Lines were established per Anesthesia Sequential compression devices were in place The patient was positioned prone on the concentric Jeremy table with the side bolsters and all extremities appropriately padded Leads for intraoperative neuro monitoring were placed prior to positioning and a baseline study obtained Appropriate timeout procedure was performed with all personnel present and in agreement The lumbar region was shaved with clippers and sterilely prepped and draped 1% Xylocaine with epinephrine was used for local infiltration over the incision site which was made approximately 5.5 cm lateral to the midline at the bilateral L4-S1 level and carried sharply down to the fascia. The fascia was sharply incised and finger dissection was used to separate the normal intermuscular plane at the bilateral L4-S1 level, allowing direct palpation of the junction of the and pedicle and transverse process on each side. The entry point for the pedicle screws were determined by anatomic and radiographic landmarks. Using AP and lateral C-arm imaging, the Jamshidi needle was guided through the bilateral L4, L5 and S1 pedicle. The intraoperative C-arm imaging was used to verify appropriate Jamshidi needle placement. The wires were then placed through the Jamshidi needle cannulas, and the cannula was withdrawn. The wires were temporarily clipped away from the operative field. The small micro-retractor was placed sequentially over the bilateral L4 5 and L5 -S1 facet. At each of these facet sites, the Bovie at low current was used to perform the bilateral L4 5 and L5-S1 facet rhizotomy by thoroughly cauterizing the dorsal lateral aspect of the facet and pars interarticularis and dorsal transverse process at each level. The cannulated 5.5 mm tap was then used to prepare the pedicle screw sites on each side, with the dilators used to protect the surrounding tissue. The appropriate length Spine Wave Sniper percutaneous cannulated pedicle screw attached to the MIS extenders were placed into the bilateral L4 and L5 , and S1 pedicle using the existing guidewires which were then removed. Pedicle screw placement was checked with intraoperative C-arm imaging and neuro monitoring with EMG stimulation and felt to be satisfactory. The percutaneous rods were placed across the pedicle screws on each side. The locking caps were secured with the torque wrench and anti-torque device Compression and alignment were achieved as necessary with the rods and reducers. The entire construct was checked with intraoperative C-arm and felt to be satisfactory The region was well irrigated with antibiotic irrigation The closure was performed with 0 Vicryl interrupted for the deep and superficial fascia, with 3-0 Vicryl for the subcutaneous closure and 4-0 Vicryl running subcuticular closure. Dressings sterile Mastisol, Steri-Strips and Primapore was placed The patient was turned into supine position and taken to recovery room in stable condition All counts were correct at the end of the case Estimated blood loss was 100 cc No specimen was sent to pathology Neuro monitoring was stable during the procedure Yaniv Aquino MD Feb 21, 2017 13:48
--- NOTE | 2017-02-21 14:08 | RADRPT ---
EXAM DATE/TIME: 02/21/2017 09:17 [facility] COMPARISON: SPINE LUMBAR LTD (AP & LAT), February 18, 2017, 9:47. INDICATIONS : Lumbar spine L4-S1 posterior fusion. OR. Previous anterior fusion. MEDICAL HISTORY : None. SURGICAL HISTORY : Appendectomy. Lumbar fusion, anterior. ENCOUNTER: Subsequent ACUITY: 1 day PAIN SCORE: Non-responsive. LOCATION: Lumbar L4-S1 FINDINGS: 2 spot fluoroscopic images obtained in the operating room during a procedure documents posterior bila teral pedicular screws with vertical stabilization hardware extending from L4-S1. The intradiscal mat erial at L4-L5 and L5-S1 is stable as well as the anterior plates at these levels. CONCLUSION: Spot fluoroscopic images documenting posterior spinal fusion from L4-S1. Kojo Blackmon MD on February 21, 2017 at 14:04 Board Certified Radiologist. This report was verified electronically.
[2017-02-21] MEDS ORDERED: DO NOT ADM ANY ANTICOAGULANT DRUGS PRN (14:15)
[2017-02-21] MEDS ORDERED: *HYDROmorphone PF 1 MG VIAL PERIprocedural Use ONLY ONE (14:17)
[2017-02-21 16:00] VITALS: BP 102/53; PULSE 105; RESP 21; TEMP 99.5; O2SAT 97
[2017-02-21] MEDS: ACETAMINOPHEN/HYDROcodone 325 MG/5 MG TAB PO PRN ×2 (16:00→21:53)
[2017-02-21] MEDS: D5-1/2 NS + KCL 20 MEQ INJ 1,000 ML IV SCH (17:01)
[2017-02-21] MEDS: MORPHINE SULFATE 4 MG/ML INJ IV PUSH PRN (18:14)
[2017-02-21 20:45] VITALS: BP 145/81; PULSE 92; RESP 18; TEMP 100; O2SAT 97
[2017-02-21] MEDS: LATANOPROST 0.005% OPHT SOLN 2.5 ML BTL EACH EYE SCH (21:34)
[2017-02-22] MEDS: KETOROLAC TROMETHAMINE 30 MG/ML (IVP) VIAL IV PUSH SCH ×5 (00:20→23:58)
[2017-02-22 00:31] VITALS: BP 90/51; PULSE 65; RESP 18; TEMP 100.5; O2SAT 97
[2017-02-22] MEDS: ACETAMINOPHEN/HYDROcodone 325 MG/5 MG TAB PO PRN ×3 (04:46→20:59)
[2017-02-22 04:49] VITALS: BP 102/58; PULSE 69; RESP 18; TEMP 97.8; O2SAT 98
[2017-02-22] MEDS: D5-1/2 NS + KCL 20 MEQ INJ 1,000 ML IV SCH ×2 (05:00→11:56)
[2017-02-22 06:12] LABS: BASOPHIL % 0.3 % (0.0-2.0); EOSINOPHIL # 0.1 TH/MM3 (0-0.4); EOSINOPHIL % 0.6 % (0.0-4.0); HEMATOCRIT 32.7 % (39.0-51.0); HEMO FLAGS DIFF FINAL; LYMPH % 10.3 % (9.0-44.0); LYMPHOCYTE # 1.1 TH/MM3 (1.0-4.8); MEAN CELL VOLUME 98.2 FL (80.0-100.0); MEAN CORPUSCULAR HEMOGLOBIN 33.8 PG (27.0-34.0); MEAN CORPUSCULAR HGB CONC 34.4 % (32.0-36.0); MONO % 16.8 % (0.0-8.0); PLATELET COUNT 123 TH/MM3 (150-450); RED BLOOD COUNT 3.33 MIL/MM3 (4.50-5.90); RED CELL DISTRIBUTION WIDTH 12.5 % (11.6-17.2); WHITE BLOOD COUNT 11.2 TH/MM3 (4.0-11.0)
[2017-02-22 06:37] LABS: BICARBONATE 26.7 MEQ/L (21.0-32.0); POTASSIUM 4.1 MEQ/L (3.5-5.1)
[2017-02-22 08:00] VITALS: BP 116/65; PULSE 67; RESP 16; TEMP 97; O2SAT 93
--- NOTE | 2017-02-22 08:33 | HHI.PR ---
Subjective Subjective Notes Had a rough night Tuesday night, tearful just remembering it, better now. Breakfast ordered, no nausea. Objective Vitals/I&O Vital Signs Date Time Temp Pulse Resp B/P (MAP) Pulse Ox O2 Delivery O2 Flow Rate FiO2 02/22/17 04:49 97.8 69 18 102/58 (73) 98 02/21/17 14:30 Nasal Cannula 3 Labs Laboratory Tests Test 02/22/17 06:02 White Blood Count 11.2 Red Blood Count 3.33 Hemoglobin 11.3 Hematocrit 32.7 Mean Corpuscular Volume 98.2 Mean Corpuscular Hemoglobin 33.8 Mean Corpuscular Hemoglobin Concent 34.4 Red Cell Distribution Width 12.5 Platelet Count 123 Mean Platelet Volume 9.0 Neutrophils (%) (Auto) 72.0 Lymphocytes (%) (Auto) 10.3 Monocytes (%) (Auto) 16.8 Eosinophils (%) (Auto) 0.6 Basophils (%) (Auto) 0.3 Neutrophils # (Auto) 8.0 Lymphocytes # (Auto) 1.1 Monocytes # (Auto) 1.9 Eosinophils # (Auto) 0.1 Basophils # (Auto) 0.0 CBC Comment DIFF FINAL Differential Comment Blood Urea Nitrogen 16 Creatinine 1.17 Random Glucose 148 Calcium Level 7.5 Sodium Level 135 Potassium Level 4.1 Chloride Level 102 Carbon Dioxide Level 26.7 Anion Gap 6 Estimat Glomerular Filtration Rate 61 Abdomen: Non-distended, Non-tender, Other (Dressing dry and intact. No erythema , no drainage.), BS normal Extremities: No edema, SCD's on A/P Assessment and Plan POD 4 anterior retroperitoneal exposure L4L5, L5S1, anterior microdiskectomy, AIBF. POD 1 posterior screws. Rough night Tuesday night, better now. Doing well. Regular diet. DC plans, rehab, PT per Dr Aquino. Alfredo Olivo MD Feb 22, 2017 08:33
[2017-02-22] MEDS: REMOVE OLD PATCH T-DERMAL SCH (09:00)
[2017-02-22] MEDS: DOCUSATE SODIUM 100 MG CAP PO SCH ×2 (09:00→20:48)
[2017-02-22] MEDS: MULTIVITAMIN TAB PO SCH (09:00)
[2017-02-22] MEDS: NICOTINE 14 MG/24 HR PATCH T-DERMAL SCH (09:01)
[2017-02-22] MEDS: PANTOPRAZOLE SODIUM 40 MG VIAL IVP SCH (09:02)
[2017-02-22] MEDS: PRIMIDONE 50 MG TAB PO SCH ×2 (09:06→20:59)
--- NOTE | 2017-02-22 11:37 | HHI.NSPN ---
(Maicol Edward) History Chief Complaint: None (Maicol Edward) Interval History 02/18: Patient presented to [facility] to undergo a L4-5 and L5-S1 anterior lumbar discectomy with fusion and a cage through an anterior retroperitoneal approach by Dr Olivo. This was part one of a two part surgery. Post- operatively the patient was transferred to a regular med/surg floor for further care and monitoring. 02/19: patient doing well, c/o soreness in the belly. sat up in chair this am. 02/20: complains of constipation and muscle spasms, otherwise he is doing well. 02/21: Patient underwent a bilateral L4-S1 posterior instrumentation with pedicle screw fixation and a bilateral L4-5 and L5-S1 facet rhizotomy. This was part two of a two part surgery. Post-operatively the patient was transferred to a regular med/surg floor for further care and monitoring. 02/22: When seen this afternoon the patient is awake and alert. He says he is doing good and states that his back is better. He denies any back pain, any pain , numbness or tingling to the lower extremities or any weakness to the lower extremities. He had no other complaints. He stated he did have a bowel movement today. He did state that on he wasn't doing good. He also said he did have some left-sided abdominal pain following his first surgery on but that has resolved and he has none now. (Maicol Edward) System Review Comments Patient denied any complaints during the ROS. (Maicol Edward) Exam Results 02/20/17 02/20/17 02/21/17 02/21/17 02/22/17 02/22/17 06:00 18:00 06:00 18:00 06:00 18:00 Intake Total 600 ml 1650 ml 1201 ml 2990 ml 480 ml 120 ml Output Total 1050 ml 800 ml 300 ml 900 ml 600 ml 375 ml Balance -450 ml 850 ml 901 ml 2090 ml -120 ml -255 ml Intake Oral 600 ml 900 ml 480 ml 0 ml 480 ml 120 ml IV Total 750 ml 721 ml 990 ml Other 2000 ml Output Urine Total 1050 ml 800 ml 300 ml 800 ml 600 ml 375 ml Estimated Blood Loss 100 ml # Bowel Movements 0 0 0 0 0 2 Vital Signs Date Time Temp Pulse Resp B/P (MAP) Pulse Ox O2 Delivery O2 Flow Rate FiO2 02/22/17 11:57 96.0 57 16 99/56 (70) 95 02/22/17 08:00 97.0 67 16 116/65 (82) 93 02/22/17 04:49 97.8 69 18 102/58 (73) 98 02/22/17 00:31 100.5 65 18 90/51 (64) 97 02/21/17 20:45 100.0 92 18 145/81 (102) 97 02/21/17 16:00 99.5 105 21 102/53 (69) 97 02/21/17 14:30 63 12 134/68 (90) 96 Nasal Cannula 3 02/21/17 14:15 67 12 135/75 (95) 99 Nasal Cannula 3 02/21/17 14:00 71 12 135/67 (89) 99 Nasal Cannula 3 02/21/17 13:45 73 15 146/67 (93) 99 Nasal Cannula 3 02/21/17 13:29 97.8 89 12 120/65 (83) 99 Simple Mask 6 02/21/17 04:09 98.9 95 18 134/74 (94) 92 02/20/17 23:25 100.3 77 18 108/59 (75) 91 02/20/17 19:42 100.0 88 19 121/60 (80) 93 02/20/17 15:34 98.8 80 17 107/63 (78) 94 02/20/17 11:57 98.6 74 17 134/76 (95) 94 02/20/17 07:41 98.6 92 17 116/64 (81) 94 02/20/17 04:00 98.0 83 20 138/74 (95) 95 02/20/17 00:00 100.5 85 18 112/56 (74) 92 02/19/17 20:25 100.8 89 18 151/76 (101) 92 02/19/17 14:25 99.1 82 18 122/63 (82) 97 02/19/17 13:55 Nasal Cannula 2.00 (Maicol Edward) Physical Examination GENERAL: The patient is awake & alert, affect normal, no apparent distress. SKIN: Warm & dry. Intact dressings to the abdominopelvic wall and bilateral lateral lumbar region surgical incisions, left lateral lumbar w/shadowing o/w no erythema, streaking or evident drainage. Bilateral lower leg abrasions w/ intact Vasoline gauze dressing covering, no active drainage, erythema or streaking noted. NECK: Midline cervical spine NTTP, active ROM w/o pain, no JVD, trachea midline. HEENT: Normocephalic, atraumatic. RESPIRATORY: CTAB w/o W/R/R, equal excursion, nonlaboured, on RA. CARDIOVASCULAR: S1S2 w/RRR w/o M/G/R, no pedal edema. GASTROINTESTINAL: Abdomen soft, nontender, positive bowel sounds, abdominopelvic wall surgical incision NTTP. MUSCULOSKELETAL: TAMAYO w/o difficulty, no evident clubbing or deformity. BLE NTTP. Thoracolumbar spine NTTP. Bilateral lateral lumbar surgical incisions NTTP. NEUROLOGICAL: AAOx3. Speech clear & appropriate. Follows simple commands w/o difficulty. Sensation intact to light touch to BLE. Motor strength 5/5 to all major flexion & extension muscle groups BLE. (Maicol Edward) Lab, Micro, Other Results Recent Impressions Lumbar Spine X-Ray 02/21/17 0000 Signed Impressions: Service Date/Time: Tuesday, February 21, 2017 09:17 - CONCLUSION: Spot fluoroscopic images documenting posterior spinal fusion from L4-S1. Kojo Blackmon MD Lumbar Spine CT 02/20/17 0000 Signed Impressions: Service Date/Time: Monday, February 20, 2017 12:57 - CONCLUSION: 1. Status post anterior fusion with disc cage placement at L4-5 and L5-S1. Hardware is intact in size alignment is maintained. 2. Very small 3.6 x 1.7 cm left anterior paraspinal hematoma with tiny foci of air at L5-S1 level. This is likely postsurgical. Developing abscess is unlikely given the short postop interval, although it cannot be excluded. 3. Multilevel degenerative spondylosis of the lumbar spine, as above. 4. 5 mm nonobstructing calyceal calculus in the inferior pole of the right kidney. 5. Multiple 3 cm hypodense lesion in the left lobe of the liver, incompletely characterized on this exam. Statistically, this reflects hemangioma or cyst. Further evaluation may be performed with ultrasound or formal CT examination if clinically warranted. Lamine Amanda MD Laboratory Tests Test 02/22/17 06:02 White Blood Count 11.2 TH/MM3 Red Blood Count 3.33 MIL/MM3 Hemoglobin 11.3 GM/DL Hematocrit 32.7 % Mean Corpuscular Volume 98.2 FL Mean Corpuscular Hemoglobin 33.8 PG Mean Corpuscular Hemoglobin Concent 34.4 % Red Cell Distribution Width 12.5 % Platelet Count 123 TH/MM3 Mean Platelet Volume 9.0 FL Neutrophils (%) (Auto) 72.0 % Lymphocytes (%) (Auto) 10.3 % Monocytes (%) (Auto) 16.8 % Eosinophils (%) (Auto) 0.6 % Basophils (%) (Auto) 0.3 % Neutrophils # (Auto) 8.0 TH/MM3 Lymphocytes # (Auto) 1.1 TH/MM3 Monocytes # (Auto) 1.9 TH/MM3 Eosinophils # (Auto) 0.1 TH/MM3 Basophils # (Auto) 0.0 TH/MM3 CBC Comment DIFF FINAL Differential Comment Blood Urea Nitrogen 16 MG/DL Creatinine 1.17 MG/DL Random Glucose 148 MG/DL Calcium Level 7.5 MG/DL Sodium Level 135 MEQ/L Potassium Level 4.1 MEQ/L Chloride Level 102 MEQ/L Carbon Dioxide Level 26.7 MEQ/L Anion Gap 6 MEQ/L Estimat Glomerular Filtration Rate 61 ML/MIN (Maicol Edward) Medical Decision Making Impression and Plan Impression: The patient is doing well this afternoon and is neurologically intact. He has no pain to the back or to his surgical incisions. Reviewed labs for today. Very minimal hyponatremia. Continued improvement in leukocytosis. POD #4 () s/p: Part 1 of planned two-part procedure. 1. Anterior retroperitoneal approach to the lumbar spine-Dr. Olivo 2. L4 5 and L5-S1 anterior lumbar discectomy 3. L4 5 and L5-S1 anterior interbody fusion with titanium lordotic cage, autograft bone and DBM. Postoperative Diagnosis: (1) Flat back syndrome, acquired (2) Back pain 1. Severe lumbar degenerative disc disease 2. Lumbar spine deformity-flat back syndrome 3. Severe chronic low back pain POD #1 () s/p: Part 2 of planned two-stage procedure. 1. Bilateral L4-S1 posterior instrumentation with pedicle screw fixation 2. Bilateral L4 5 and L5-S1 facet rhizotomy Postoperative Diagnosis: (1) Flat back syndrome, acquired (2) Back pain 1. Acquired lumbar deformity-"flat back syndrome" 2. Severe chronic back pain Plan: Neuro checks q4h. Diet as tolerated. Mobilise patient with assistance. LSO brace when out of bed. PT/OT eval & tx. D/C Benjamin catheter. (Maicol Edward) Attending Statement The exam, history, and the medical decision-making described in the above note were completed with the assistance of the mid-level provider. I reviewed and agree with the findings presented. I attest that I had a [id number] encounter with the patient on the same day, and personally performed and documented my assessment and findings in the medical record. (David Jernigan MD) Maicol Edward Feb 22, 2017 11:37 David Jernigan MD Feb 23, 2017 20:14
[2017-02-22 11:57] VITALS: BP 99/56; PULSE 57; RESP 16; TEMP 96; O2SAT 95
[2017-02-22 17:27] VITALS: BP 136/67; PULSE 74; RESP 16; TEMP 97.9; O2SAT 95
[2017-02-22 20:37] VITALS: BP 128/82; PULSE 92; RESP 18; TEMP 99.2; O2SAT 96
[2017-02-22] MEDS: LATANOPROST 0.005% OPHT SOLN 2.5 ML BTL EACH EYE SCH (21:00)
[2017-02-23 00:22] VITALS: BP 117/66; PULSE 89; RESP 18; TEMP 99.4; O2SAT 96
[2017-02-23] MEDS: ACETAMINOPHEN/HYDROcodone 325 MG/5 MG TAB PO PRN ×3 (01:17→10:24)
[2017-02-23 01:33] VITALS: O2SAT 95
[2017-02-23 04:09] VITALS: TEMP 97.7
[2017-02-23] MEDS: KETOROLAC TROMETHAMINE 30 MG/ML (IVP) VIAL IV PUSH SCH ×2 (05:36→12:52)
[2017-02-23] MEDS: D5-1/2 NS + KCL 20 MEQ INJ 1,000 ML IV SCH ×2 (05:37→11:00)
[2017-02-23 08:00] VITALS: BP 136/75; PULSE 82; RESP 18; TEMP 99; O2SAT 93
--- NOTE | 2017-02-23 08:25 | HHI.PR ---
Subjective Subjective Notes Pt eating and drinking, voiding, and had a BM. Interested in going home. Objective Vitals/I&O Vital Signs Date Time Temp Pulse Resp B/P (MAP) Pulse Ox O2 Delivery O2 Flow Rate FiO2 02/23/17 04:09 97.7 02/23/17 01:33 95 02/23/17 00:22 89 18 117/66 (83) 02/21/17 14:30 Nasal Cannula 3 Cardiovascular: Regular Lungs: Clear Abdomen: Non-distended, Non-tender, Other (dressing dry and intact.) Extremities: No edema, Perfused Narrative Exam Back incisions intact, minimal drainage, no erythema. A/P Assessment and Plan POD 5 anterior retroperitoneal exposure L4L5, L5S1, anterior microdiskectomy, AIBF. POD 2 posterior screws. Wants to go home. Cleared for DC from GS standpoint. D/W patient and RN, will try to communicate with [facility] coverage for Dc plans, pt' s a [employer], he wants to go home. Alfredo Olivo MD Feb 23, 2017 08:25
[2017-02-23 08:30] VITALS: O2SAT 95
[2017-02-23] MEDS: REMOVE OLD PATCH T-DERMAL SCH (09:00)
[2017-02-23] MEDS: DOCUSATE SODIUM 100 MG CAP PO SCH (10:11)
[2017-02-23] MEDS: MULTIVITAMIN TAB PO SCH (10:11)
[2017-02-23] MEDS: NICOTINE 14 MG/24 HR PATCH T-DERMAL SCH (10:11)
[2017-02-23] MEDS: PANTOPRAZOLE SODIUM 40 MG VIAL IVP SCH (10:12)
[2017-02-23] MEDS: PRIMIDONE 50 MG TAB PO SCH (10:13)
--- NOTE | 2017-02-23 10:52 | HHI.NSPN ---
History Chief Complaint: Low back soreness. Interval History 02/18: Patient presented to [facility] to undergo a L4-5 and L5-S1 anterior lumbar discectomy with fusion and a cage through an anterior retroperitoneal approach by Dr Olivo. This was part one of a two part surgery. Post- operatively the patient was transferred to a regular med/surg floor for further care and monitoring. 02/19: patient doing well, c/o soreness in the belly. sat up in chair this am. 02/20: complains of constipation and muscle spasms, otherwise he is doing well. 02/21: Patient underwent a bilateral L4-S1 posterior instrumentation with pedicle screw fixation and a bilateral L4-5 and L5-S1 facet rhizotomy. This was part two of a two part surgery. Post-operatively the patient was transferred to a regular med/surg floor for further care and monitoring. 02/22: When seen this afternoon the patient is awake and alert. He says he is doing good and states that his back is better. He denies any back pain, any pain , numbness or tingling to the lower extremities or any weakness to the lower extremities. He had no other complaints. He stated he did have a bowel movement today. He did state that on he wasn't doing good. He also said he did have some left-sided abdominal pain following his first surgery on but that has resolved and he has none now. 02/23/17: Pt awake and alert. States he wants to go home. He has low back soreness but doing well. No radiculopathy in LEs. Moves LEs with good strength. Ambulating with PT. Review of Systems General: Negative for: fever, chills, insomnia Respiratory: Negative for: shortness of breath, cough, sputum Cardiovascular: Negative for: chest pain Gastrointestinal: Negative for: nausea, vomitting, diarrhea, constipation Exam Results Vital Signs Date Time Temp Pulse Resp B/P (MAP) Pulse Ox O2 Delivery O2 Flow Rate FiO2 02/23/17 08:30 95 21 02/23/17 08:00 99.0 82 18 136/75 (95) 02/21/17 14:30 Nasal Cannula 3 Intake and Output 02/23/17 02/23/17 02/24/17 08:00 16:00 00:00 Intake Total 240 ml Balance 240 ml Physical Examination GENERAL: The patient is awake & alert, affect normal, no apparent distress. SKIN: Warm & dry. Intact dressings to the abdominopelvic wall and bilateral lateral lumbar region surgical incisions, left lateral lumbar w/shadowing o/w no erythema, streaking or evident drainage. Bilateral lower leg abrasions w/ intact Vasoline gauze dressing covering, no active drainage, erythema or streaking noted. NECK: Midline cervical spine NTTP, active ROM w/o pain, no JVD, trachea midline. HEENT: Normocephalic, atraumatic. RESPIRATORY: CTAB w/o W/R/R, equal excursion, nonlaboured, on RA. CARDIOVASCULAR: S1S2 w/RRR w/o M/G/R, no pedal edema. GASTROINTESTINAL: Abdomen soft, nontender, positive bowel sounds, abdominopelvic wall surgical incision NTTP. MUSCULOSKELETAL: TAMAYO w/o difficulty, no evident clubbing or deformity. BLE NTTP. Thoracolumbar spine NTTP. Bilateral lateral lumbar surgical incisions NTTP. NEUROLOGICAL: AAOx3. Speech clear & appropriate. Follows simple commands w/o difficulty. Sensation intact to light touch to BLE. Motor strength 5/5 to all major flexion & extension muscle groups BLE. Lab, Micro, Other Results Last Impressions Lumbar Spine X-Ray 02/21/17 0000 Signed Impressions: Service Date/Time: Tuesday, February 21, 2017 09:17 - CONCLUSION: Spot fluoroscopic images documenting posterior spinal fusion from L4-S1. Kojo Blackmon MD Lumbar Spine CT 02/20/17 0000 Signed Impressions: Service Date/Time: Monday, February 20, 2017 12:57 - CONCLUSION: 1. Status post anterior fusion with disc cage placement at L4-5 and L5-S1. Hardware is intact in size alignment is maintained. 2. Very small 3.6 x 1.7 cm left anterior paraspinal hematoma with tiny foci of air at L5-S1 level. This is likely postsurgical. Developing abscess is unlikely given the short postop interval, although it cannot be excluded. 3. Multilevel degenerative spondylosis of the lumbar spine, as above. 4. 5 mm nonobstructing calyceal calculus in the inferior pole of the right kidney. 5. Multiple 3 cm hypodense lesion in the left lobe of the liver, incompletely characterized on this exam. Statistically, this reflects hemangioma or cyst. Further evaluation may be performed with ultrasound or formal CT examination if clinically warranted. Lamine Amanda MD Abdomen X-Ray 02/18/17 0000 Signed Impressions: Service Date/Time: Saturday, February 18, 2017 16:35 - CONCLUSION: Negative for retained surgical enhancements. Adolfo Rodríguez MD FACR Medical Decision Making Impression and Plan A: 76 y/o s/p () Part 1 of planned two-part procedure. 1. Anterior retroperitoneal approach to the lumbar spine-Dr. Olivo 2. L4 5 and L5-S1 anterior lumbar discectomy 3. L4 5 and L5-S1 anterior interbody fusion with titanium lordotic cage, autograft bone and DBM. () Part 2 of planned two-stage procedure. 1. Bilateral L4-S1 posterior instrumentation with pedicle screw fixation 2. Bilateral L4 5 and L5-S1 facet rhizotomy P: Discharge pt home Follow up with Dr. Aquino Discussed restrictions- no smoking, brace, activity. Carlos Koch Feb 23, 2017 10:52 am
--- NOTE | 2017-02-23 10:57 | HHI.FF ---
Face to Face Verification Diagnosis: (1) Flat back syndrome, acquired (2) Spinal stenosis (3) Back pain (4) Disc displacement, lumbar Physical Therapy Order: Evaluate and Treat, Improve ambulation Home Health Nursing Order: Wound care and dressing changes Nursing assessment with vital signs I have seen patient Aly Wheeler on 02/23/17. My clinical findings support the need for the requested home health care services because: Deconditioned w/ increased weakness High risk of falls I certify that my clinical findings support that this patient is homebound because: Unsteady gait/balance Unable to use public transportation Carlos Koch Feb 23, 2017 10:57 am
[2017-02-23 12:00] VITALS: BP 126/69; PULSE 82; RESP 18; TEMP 96.2; O2SAT 97
== END 2017-02-23 13:52 | disposition home or self-care (01) | DRG 460 ==
LOC: HSDI 06:05 → N03B 18:18 → N06A 02-19 12:39
PROVIDERS: ADMIT Neurological Surgery; ATTEND Neurological Surgery
PROC: 01NB0ZZ Release Lumbar Nerve, Open Approach (ICD-10-PCS; 2017-02-18)
PROC: 0SG30A0 Fusion of Lumbosacral Joint with Interbody Fusion Device, Anterior Approach, Anterior Column, Open Approach (ICD-10-PCS; principal; 2017-02-18 08:21)
PROC: 0SB40ZZ Excision of Lumbosacral Disc, Open Approach (ICD-10-PCS; 2017-02-18 08:21)
PROC: 0QB30ZZ Excision of Left Pelvic Bone, Open Approach (ICD-10-PCS; 2017-02-18 08:21)
DX: M48.062 Spinal stenosis, lumbar region with neurogenic claudication (principal); G89.29 Other chronic pain; M51.37 Other intervertebral disc degeneration, lumbosacral region; M40.30 Flatback syndrome, site unspecified; M25.78 Osteophyte, vertebrae; K59.00 Constipation, unspecified
CPT/HCPCS: 72100; 72131; 74000; 76000; 80048; 82805; 85025; 85610; 85730; 86850; 86900; 86901; 86920; 94150; 94640; C1713; C9113; C9290; J0131; J0690; J1100; J1170; J1580; J1644; J1885; J1940; J2270; J3480; J7120; J7613; L0484